=== PATIENT | male | born 1970 | race Caucasian/White ===

== ENCOUNTER 2020-09-11 09:16 | Emergency (ER) | payer SELFPAY ==
[~2020-09-11] VITALS: Ht 175.3 cm; Wt 78.0 kg
[2020-09-11 09:24] VITALS: BP 106/68
[2020-09-11] MEDS ORDERED: SODIUM CHLORIDE 0.9% 1,000 ML IV ONE (11:00)
== END 2020-09-11 11:18 | disposition left against medical advice (07) ==
LOC: ER 09:16
DX: E11.65 Type 2 diabetes mellitus with hyperglycemia (principal); F10.129 Alcohol abuse with intoxication, unspecified; Y90.9 Presence of alcohol in blood, level not specified
CPT/HCPCS: 93005; 99283; J7030